=== PATIENT | female | born 1935 | race Caucasian/White ===

== ENCOUNTER → 2018-11-27 | Day surgery (SDC) | payer MEDICARE ==
[2018-11-14 13:01] LABS: BASOPHILS # (AUTO) 0.1 (0.0-0.1); BASOPHILS % 1.2 % (0.0-1.0); EOSINOPHILS # (AUTO) 0.5 (0.0-0.4); EOSINOPHILS % 10.7 % (0.0-6.0); HEMATOCRIT 38.2 % (34.2-44.1); HEMOGLOBIN 12.9 g/dL (12.0-16.0); LYMPHOCYTES # (AUTO) 1.9 (1.0-3.2); LYMPHOCYTES % 36.6 % (18.0-39.1); MEAN CORPUSCULAR HEMOGLOBIN 33.6 pg (28-32); MEAN CORPUSCULAR HGB CONC 33.8 g/dL (31-35); MEAN CORPUSCULAR VOLUME 99.5 fL (81-99); MONOCYTES # (AUTO) 0.6 (0.2-0.8); MONOCYTES % 12.5 % (4.4-11.3); NEUTROPHILS % 38.8 % (38.7-80.0); PLATELET COUNT 219 x10e3/uL (140-360); RED BLOOD COUNT 3.84 x10e6/uL (3.6-5.1); RED CELL DISTRIBUTION WIDTH 12.9 % (11.7-14.4)
[~2018-11-27] MED LIST: CLARITHROMYCIN; ELMIRON; LEVOTHYROXINE50 MCG PO; LIDOCAINE HCL 2% LOCAL INJ 5 ML SDV VIAL INJ ONE; LIPITOR; NITROFURANTOIN; PROPOFOL IV EMULSION 10 MG/ML 50 ML VIAL ONE; PROZAC PO
--- OUTSIDE RECORDS SUMMARY | 2018-11-27 06:44 | XMS REPORT ---
Author Author [facility] Address Unknown Phone Unavailable Care Team Providers Care Photo Technologist Name Role Phone Unavailable Unavailable Payers Payer Name Policy Type Policy Number Effective Date Expiration Date Problems This patient has no known problems. Allergies, Adverse Reactions, Alerts Allergy Name Allergy Type Status Severity Reaction(s) Onset Date Inactive Date Treating Clinician Comments Penicillins DA Active [place] 2009-09-07 00:00:00 Medications This patient has no known medications. Results Test Description Test Time Test Comments Text Results Atomic Results Result Comments - XR CHEST 1 V 2018-07-22 18:39:00 Name: ANN FINNEGAN [facility] : 1935 Age/S:83 /F [address] [facility] Unit#:[id number] Loc: [place] [address] Phys: Alonso Sen MD Dis Date: PHONE #: [phone] Status: REG ER FAX #: [phone] Exam Date: 07/22/2018 Reason: CHEST PAIN EXAMS: CPT CODE: [id number] XR CHEST 1 V 20159 HISTORY: Chest pain. COMPARISON: September 07, 2009. No acute infiltrates, effusion or congestion is noted. Mild cardiomegaly. IMPRESSION: No acute infiltrates, effusion or congestion. at 1838 Reported and signed by: Shmuel Plascencia M.D. CC: Alonso Sen MD Technologist: Jessica Fierro Trnscrpt Data: 07/22/2018 ([id number]) [id number] Orig Print D/T: S: 07/22/2018 ([id number]) PAGE 1 Signed Report URINALYSIS COMPLETE 2018-07-22 18:35:00 UA COLOR (test code=COLU) LIGHT YELLOW YELLOW UA APPEARANCE (test code=APPU) CLEAR CLEAR UA GLUCOSE DIPSTICK (test code=DGLUU) norm mg/dL NEGATIVE UA BILIRUBIN DIPSTICK (test code=BILU) NEGATIVE mg/dL NEGATIVE UA KETONE DIPSTICK (test code=KETU) neg mg/dL NEGATIVE UA SPECIFIC GRAVITY (test code=SGU) 1.010 1.001-1.035 UA BLOOD DIPSTICK (test code=YULIA) 25 (1+) Maximilian/uL NEGATIVE UA PH DIPSTICK (test code=DAY) 6.5 5.0-8.0 UA PROTEIN DIPSTICK (test code=PROU) 15 (TRACE) mg/dL Neg-15 UA UROBILINIOGEN DIPSTICK (test code=URO) 1 mg/dL 0.0-0.2 UA NITRITE DIPSTICK (test code=JACKELIN) NEGATIVE NEGATIVE UA LEUKOCYTE ESTERASE DIPSTICK (test code=LEUU) 25 Ariella/uL (Trace) uL NEGATIVE UA WBC (test code=WBCU) 0-5 per HPF 0-5 UA RBC (test code=RBCU) 0-2 per HPF 0-5 UA EPITHELIAL CELLS (test code=EPIU) Few (2-5/hpf) per HPF Few UA BACTERIA (test code=BACU) TRACE per HPF NONE UA MUCUS (test code=MUCU) FEW per LPF NONE-FEW Urine Source? Clean CatchURINALYSIS [id number] 18:29:00* Test Item Value Reference Range Comments UA COLOR (test code=COLU) LIGHT YELLOW YELLOW UA APPEARANCE (test code=APPU) CLEAR CLEAR UA GLUCOSE DIPSTICK (test code=DGLUU) norm mg/dL NEGATIVE UA BILIRUBIN DIPSTICK (test code=BILU) NEGATIVE mg/dL NEGATIVE UA KETONE DIPSTICK (test code=KETU) neg mg/dL NEGATIVE UA SPECIFIC GRAVITY (test code=SGU) 1.010 1.001-1.035 UA BLOOD DIPSTICK (test code=YULIA) 25 (1+) Maximilian/uL NEGATIVE UA PH DIPSTICK (test code=DAY) 6.5 5.0-8.0 UA PROTEIN DIPSTICK (test code=PROU) 15 (TRACE) mg/dL Neg-15 UA UROBILINIOGEN DIPSTICK (test code=URO) 1 mg/dL 0.0-0.2 UA NITRITE DIPSTICK (test code=JACKELIN) NEGATIVE NEGATIVE UA LEUKOCYTE ESTERASE DIPSTICK (test code=LEUU) 25 Ariella/uL (Trace) uL NEGATIVE UA WBC (test code=WBCU) per HPF 0-5 UA RBC (test code=RBCU) per HPF 0-5 UA EPITHELIAL CELLS (test code=EPIU) per HPF Few UA BACTERIA (test code=BACU) per HPF NONE Urine Source? Clean CatchBASIC METABOLIC [id number] 18:25:00* Test Item Value Reference Range Comments SODIUM (test code=NA) 137 mmol/L 136-145 POTASSIUM (test code=K) 4.3 mmol/L 3.5-5.1 CHLORIDE (test code=CL) 102 mmol/L 101-109 CARBON DIOXIDE (test code=CO2) 28.4 mmol/L 21-32 ANION GAP (test code=GAP) 11 mmol/L 10-20 GLUCOSE (test code=GLU) 108 mg/dL 74-106 BLOOD UREA NITROGEN (test code=BUN) 18 mg/dL 3-21 GLOMERULAR FILTRATION RATE (test code=GFR) 56 mL/min >=60 Estimated GFR by using Modified MDRD formula.Chronic kidney disease is defined as either kidney damageor GFR <60 mL/min/1.73 m2 for >3 months. CREATININE (test code=CREAT) 0.95 mg/dL 0.55-1.3 BUN/CREATININE RATIO (test code=BUN/CREA) 18.9 10-20 CALCIUM (test code=CA) 8.6 mg/dL 8.4-10.2 [id number] 18:25:00* Test Item Value Reference Range Comments TROPONIN-I (test code=TROPI) <0.015 ng/mL 0.00-0.056 BASIC METABOLIC [id number] 18:16:00* Test Item Value Reference Range Comments SODIUM (test code=NA) 137 mmol/L 136-145 POTASSIUM (test code=K) 4.3 mmol/L 3.5-5.1 CHLORIDE (test code=CL) 102 mmol/L 101-109 CARBON DIOXIDE (test code=CO2) 28.4 mmol/L 21-32 ANION GAP (test code=GAP) 11 mmol/L 10-20 GLUCOSE (test code=GLU) 108 mg/dL 74-106 BLOOD UREA NITROGEN (test code=BUN) mg/dL 3-21 GLOMERULAR FILTRATION RATE (test code=GFR) 56 mL/min >=60 Estimated GFR by using Modified MDRD formula.Chronic kidney disease is defined as either kidney damageor GFR <60 mL/min/1.73 m2 for >3 months. CREATININE (test code=CREAT) 0.95 mg/dL 0.55-1.3 BUN/CREATININE RATIO (test code=BUN/CREA) 10-20 CALCIUM (test code=CA) 8.6 mg/dL 8.4-10.2 [id number] 18:16:00* Test Item Value Reference Range Comments TROPONIN-I (test code=TROPI) <0.015 ng/mL 0.00-0.056 B-TYPE NATRIURETIC [id number] 18:10:00* Test Item Value Reference Range Comments B-TYPE NATRIURETIC PEPTIDE (test code=BNP) 55.4 pg/mL 0-100 CBC W/O [id number] 17:51:00* Test Item Value Reference Range Comments WHITE BLOOD CELL (test code=WBC) 9.2 K/mm3 4.5-12.5 RED BLOOD CELL (test code=RBC) 3.79 mill/mm3 3.7-5.2 HEMOGLOBIN (test code=HGB) 12.6 gram/dL 11.5-15.5 HEMATOCRIT (test code=HCT) 37.6 % 36.0-46.0 MEAN CELL VOLUME (test code=MCV) 99.2 fL 80-98 MEAN CELL HGB (test code=MCH) 33.2 picogram 27.0-33.0 MEAN CELL HGB CONCETRATION (test code=MCHC) 33.5 gram/dL 33.0-36.0 RED CELL DISTRIBUTION WIDTH (test code=RDW) 13.0 % 11.6-16.2 RED CELL DISTRIBUTION WIDTH SD (test code=RDW-SD) 48.3 fL 37.0-51.0 PLATELET COUNT (test code=PLT) 208 K/mm3 150-450 MEAN PLATELET VOLUME (test code=MPV) 11.4 fL 6.7-11.0
--- OUTSIDE RECORDS SUMMARY | 2018-11-27 06:44 | XMS REPORT | Encounter Summary ---
Author Organization Unknown Address [address] [place] [address] Phone [phone] Care Team Providers Care Communications Technician Name Role Phone Donna Ashraf MD 3 [phone] Reason for Visit Medical Complaint Instructions 1. Acute urinary tract infection urinalysis, dipstick Macrobid 100 mg capsule culture, urine Discussion Note Pt is in NAD; Verbalizes understanding of all instructions with no questions at this time. Patient educational handouts: No information available. Plan of Care Patient Instructions Recommend proper hydration and frequent urination. Avoid douching, Recommend urinating after sexual intercourse. Recommend wipe front to back after urinating. Avoid using tubs. Take medications as prescribed. Follow up with your PCP within 2-3 days if symptoms worsen as discussed and within a week for re-assessment of protein and blood in urine. Reminders Provider Appointments None recorded. Lab Urinalysis, Dipstick 12/09/2017 [facility] Culture, Urine 12/09/2017 [facility] Referral None recorded. Procedures None recorded. Surgeries None recorded. Imaging None recorded. Medications Name Start Date atorvastatin 10 mg tablet TK 1 T PO QD cyanocobalamin (vit B-12) 1,000 mcg/mL injection solution INJECT 1ML IM Q MONTH fluoxetine 10 mg capsule TK 1 C PO QD Fluzone High-Dose [id number] (PF) 180 mcg/0.5 mL intramuscular syringe ADM 0.5ML IM UTD levothyroxine 25 mcg tablet TK 1 T PO QD Macrobid 100 mg capsule Take 1 capsule every 12 hours by oral route as directed for 5 days. Medications Administered None recorded. Vitals Height Weight BMI Blood Pressure 5 ft 3 in 125 lbs 22.1 kg/m2 110/72 mm[Hg] Lab Results Date Name Specimen Result Interpretation Description Value Range Status Address 12/09/2017 Urinalysis, Dipstick Color : Felisa [facility]: [address] [place] [address] Clarity : Clear [facility]: [address] [place] [address] Leukocytes : Small [facility]: [address] [facility] Nitrites : Negative [facility]: [facility] Urobilinogen : Normal [facility]: [facility] Protein : Trace [facility]: [facility] Ph : 6.5 [facility]: [facility] Blood : Small [facility]: [facility] Specific [place] : 1.025 [facility]: [facility] Ketones : Negative [facility]: [facility] Bilirubin : Negative [facility]: [facility] Glucose Negative [facility]: [facility] Allergies Code Code System Name Reaction Severity Status Onset Penicillins Active Problems Name Status Onset Date Source Hypothyroidism Active 12/09/2017 Hyperlipidemia Active 12/09/2017 Anxiety Active 12/09/2017 Depressive Disorder Active 12/09/2017 Acute Urinary Tract Infection Active 12/09/2017 Procedures Date Name Performed by Procedure on Gallbladder Information not available Tubal Ligation Information not available Vaccine List Vaccine Type influenza, unspecified formulation 11/16/2017 Social History Smoking Status Never Smoker Past Encounters 12/09/2017 Acute Urinary Tract Infection Carlie Cristina, JUNIOR GRAPHIC DESIGNER-C: [address] [place] [address], Ph. History of Present Illness [id number] Reported By: Patient HPI: Location: radiation to bladder, urethra. Quality: pain, burning. Severity: worsening, moderate. Duration: constant. Onset/Timing: worse, gradual. Context: not sexually active, no known exposure to STD, no prior history of STDs, history of urine cultures/antibiotic treatment. Modifying factors nothing makes it worse. Associated Symptoms: no fever/chills, no jaundice, no blood in the urine, no vaginal discharge, no blisters on genitals, no rash on genitals, no muscle aches, no headache, flank pain, pain during urination; fever Review of Systems:ROS as noted in the HPI Review of Systems Basic Reported By: Patient Physical Exam Adult Basic, Adult Female Complete Reported By: Patient Constitutional: General Appearance: healthy-appearing, well-nourished, well-developed. Level of Distress: NAD. Ambulation: ambulating normally Psychiatric: Mental Status: active and alert. Orientation: to time, to place, to person Eyes: Lids and Conjunctivae: non-injected, no pallor; no periorbital edema Neck: Neck: supple. Lymph Nodes: no cervical LAD Lungs: Respiratory effort: no dyspnea, no tachypnea, no use of accessory muscles, no intercostal retractions. Auscultation: breath sounds normal Cardiovascular: Heart Auscultation: RRR, no murmurs Musculoskeletal:: Extremities: no edema Neurologic: Gait and Station: normal gait Abdomen: Bowel Sounds: normal. Inspection and Palpation: soft, non-distended, no tenderness, no guarding, no rebound tenderness, no masses, no CVA tenderness. Liver: non-tender, no hepatomegaly. Spleen: non-tender, no splenomegaly. Hernia: none palpable
--- OUTSIDE RECORDS SUMMARY | 2018-11-27 06:44 | XMS REPORT | Continuity of Care Document ---
Author Author [employer] Address Unknown Phone Unavailable Care Team Providers Care Laser Engineer Name Role Phone Keepy Unavailable Unavailable Problems Problem Status Onset Date Classification Date Reported Comments Source Hypothyroidism 12/09/2017 Problem 12/09/2017 [facility] Hyperlipidemia 12/09/2017 Problem 12/09/2017 [facility] Anxiety 12/09/2017 Problem 12/09/2017 [facility] Depressive disorder 12/09/2017 Problem 12/09/2017 [facility] Acute urinary tract infection 12/09/2017 Problem 12/09/2017 [facility] Medications Medication Details Route Status Patient Instructions Ordering Provider Order Date Source atorvastatin 10 MG Oral Tablet atorvastatin 10 mg tablet TK 1 T PO QD Active [facility] Vitamin B 12 1 MG/ML Injectable Solution cyanocobalamin (vit B-12) 1,000 mcg/mL injection solution INJECT 1ML IM Q MONTH Active [facility] Fluoxetine 10 MG Oral Capsule fluoxetine 10 mg capsule TK 1 C PO QD Active [facility] Fluzone High-Dose [id number] (PF) 180 mcg/0.5 mL intramuscular syringe Fluzone High-Dose 2614-1498 (PF) 180 mcg/0.5 mL intramuscular syringe ADM 0.5ML IM UTD Active [facility] Levothyroxine Sodium 0.025 MG Oral Tablet levothyroxine 25 mcg tablet TK 1 T PO QD Active [facility] NITROFURANTOIN, MACROCRYSTALS 25 MG / Nitrofurantoin, Monohydrate 75 MG Oral Capsule [Macrobid] Macrobid 100 mg capsule Take 1 capsule every 12 hours by oral route as directed for 5 days. Active [facility] Allergies, Adverse Reactions, Alerts Substance Category Reaction Severity Reaction type Status Date Reported Comments Source Penicillins Allergy to substance 12/09/2017 [facility] Immunizations Immunization Date Given Site Status Last Updated Comments Source influenza, unspecified formulation 11/16/2017 completed [facility] Results Order Name Results Value Reference Range Date Interpretation Comments Source Urinalysis macro (dipstick) panel - Urine COLOR : Felisa 12/09/2017 [facility] Urinalysis macro (dipstick) panel - Urine CLARITY : Clear 12/09/2017 [facility] Urinalysis macro (dipstick) panel - Urine LEUKOCYTES : Small 12/09/2017 [facility] Urinalysis macro (dipstick) panel - Urine NITRITES : Negative 12/09/2017 [facility] Urinalysis macro (dipstick) panel - Urine UROBILINOGEN : Normal 12/09/2017 [facility] Urinalysis macro (dipstick) panel - Urine PROTEIN : Trace 12/09/2017 [facility] Urinalysis macro (dipstick) panel - Urine pH : 6.5 12/09/2017 [facility] Urinalysis macro (dipstick) panel - Urine BLOOD : Small 12/09/2017 [facility] Urinalysis macro (dipstick) panel - Urine SPECIFIC GRAVITY : 1.025 12/09/2017 [facility] Urinalysis macro (dipstick) panel - Urine KETONES : Negative 12/09/2017 [facility] Urinalysis macro (dipstick) panel - Urine BILIRUBIN : Negative 12/09/2017 [facility] Urinalysis macro (dipstick) panel - Urine GLUCOSE Negative 12/09/2017 [facility] Pathology Reports No Data Provided for This Section Diagnostic Reports No Data Provided for This Section Consultation Notes No Data Provided for This Section Discharge Summaries No Data Provided for This Section History and Physicals No Data Provided for This Section Vital Signs Vital Sign Value Date Comments Source Diastolic (mm Hg) 72 12/09/2017 [facility] Height 63 12/09/2017 [facility] Systolic (mm Hg) 110 12/09/2017 [facility] Weight 125 12/09/2017 [facility] Encounters Location Location Details Encounter Type Encounter Number Reason For Visit Attending Provider ADM Date DC Date Status Source [place] - [facility] - [id number] Cristina, COMPANION CAREGIVER-C: [address] [place] [address], Ph. [id number] Carlie Cristina 12/09/2017 [facility] Procedures Procedure Code Date Perfomer Comments Source Procedure on Gallbladder [facility] Tubal Ligation [facility] Assessment and Plan No Data Provided for This Section Plan of Care No Data Provided for This Section Social History Social History Date Source Smoking Status Never Smoker 12/09/2017 [facility] Family History No Data Provided for This Section Advance Directives No Data Provided for This Section Functional Status No Data Provided for This Section
[2018-11-27 10:55] VITALS: BP 130/76
--- NOTE | 2018-11-27 17:22 | Operative Report ---
DATE OF PROCEDURE: 11/27/2018 SURGEON: Mikey Eagle MD PROCEDURE: EGD with biopsies. INDICATIONS FOR EGD: Upper abdominal pain, bloating, heartburn. MEDICATIONS: The patient was done under MAC, please see anesthesiologist's note. PROCEDURE IN DETAIL: With the patient in left lateral decubitus position, a flexible fiberoptic Olympus gastroscope was introduced into the esophagus under direct visualization without any difficulty. There was some patchy erythema noted in distal esophagus. Minute tongues of velvety red mucosa were noted to extend proximally from the GE junction and biopsies were obtained to rule out Blake. The scope was then advanced with ease into the stomach traversing a small hiatal hernia. The mucosa overlying the antrum and the body revealed some patchy erythema and low-grade to moderate edema, and biopsies were obtained and sent to stain for H. pylori. Pylorus was of normal contour and shape, it was intubated with ease and the scope was advanced all the way to the second portion of the duodenum. Biopsies were obtained from the second portion and duodenal bulb to rule out sprue. The scope was then withdrawn back into the stomach and retroflexed, and mucosa overlying the fundus appeared to be within normal limits. The previously described hiatal hernia was also noted in the retroflexed position. The scope was then straightened out, it was subsequently withdrawn, and the patient tolerated the procedure well. IMPRESSION: 1. Distal esophagitis, mild. 2. Rule out Blake esophagus. 3. Small hiatal hernia. 4. Gastritis, biopsied, biopsies sent to stain for Helicobacter pylori. 5. Rule out sprue. PLAN: Follow up histology. Initiate Protonix 40 mg 1 p.o. q.a.m. before meals. Mikey Eagle MD [facility] [place] /[id number] cc: Donna Ashraf MD
== END | disposition home or self-care (01) ==
LOC: OR 06:43
PROVIDERS: ATTEND Internal Medicine Gastroenterology
DX: K21.0 Gastro-esophageal reflux disease with esophagitis (principal); R14.0 Abdominal distension (gaseous); J45.909 Unspecified asthma, uncomplicated; I48.91 Unspecified atrial fibrillation; E03.9 Hypothyroidism, unspecified; Z88.0 Allergy status to penicillin; K44.9 Diaphragmatic hernia without obstruction or gangrene; K29.70 Gastritis, unspecified, without bleeding; K29.50 Unspecified chronic gastritis without bleeding; Z01.810 Encounter for preprocedural cardiovascular examination; Z01.812 Encounter for preprocedural laboratory examination
CPT/HCPCS: 36415; 43239; 85025; 88305; 88312; 93005; J2001; J2704

== ENCOUNTER → 2019-11-14 | Outpatient (CLI) | payer MEDICARE ==
[~2019-11-14] MED LIST changes: -LIDOCAINE HCL 2% LOCAL INJ 5 ML SDV VIAL INJ ONE; -PROPOFOL IV EMULSION 10 MG/ML 50 ML VIAL ONE
--- NOTE | 2019-11-14 11:22 | Diagnostic Imaging Report ---
EXAM: Complete Abdominal Ultrasound INDICATION: Abdominal pain. Prior cholecystectomy ^UPPER ABDOMINAL PAIN COMPARISON: None. TECHNIQUE: Transverse and longitudinal images of the upper abdomen were obtained. FINDINGS: Liver: Size: 11.6 cm in the right midclavicular line, normal Appearance: Normal echogenicity, smooth contour Mass: No focal masses Spleen: Size: 9.5 cm in length, normal Echogenicity: Normal Mass: No focal masses Gallbladder: Prior cholecystectomy Sonographic León's Sign: Negative Bile Ducts: Intrahepatic Ducts: No dilatation Extrahepatic Ducts: Common bile duct measures 0.5 cm, no dilatation Pancreas: Visualized portions of the pancreatic head, neck and proximal body are normal. Kidneys: Length: Right 8.8 cm Left 9.0 cm Echogenicity: Normal Collecting System: No hydronephrosis Stone: None Cyst/Mass: None Vessels: Aorta: Mild scattered calcification Inferior Vena Cava: Visualized portions are normal Main Portal Vein: 0.7 cm, normal size with hepatopetal flow. Free Fluid: No ascites or pleural effusion IMPRESSION: Prior cholecystectomy. Otherwise, unremarkable abdominal ultrasound. Signed by: Dr. Octaviano Easley M.D. on 11/14/2019 11:18 AM
== END ==
LOC: US 10:04
PROVIDERS: ATTEND Internal Medicine Gastroenterology
DX: R10.10 Upper abdominal pain, unspecified (principal)
CPT/HCPCS: 76700

== ENCOUNTER 2020-01-02 11:06 | Emergency (ER) | payer MEDICARE ==
[~2020-01-02] VITALS: Ht 157.5 cm; Wt 58.2 kg
[2020-01-02] MEDS ORDERED: SODIUM CHLORIDE FLUSH 10 ML SYR INJ PRN (11:30)
[2020-01-02] MEDS ORDERED: CIPROFLOXACIN 400 MG/D5W 200ML 200 ML IV ONE ×2 (11:30→11:49)
[2020-01-02] MEDS ORDERED: CRESTOR10 MG (11:31)
[2020-01-02] MEDS ORDERED: OMEPRAZOLE40 MG (11:31)
[2020-01-02] MEDS ORDERED: IOPAMIDOL 370 MG/ML 200 ML INFUS..BTL INJ ONE (11:33)
[2020-01-02] MEDS ORDERED: SODIUM CHLORIDE 0.9% 50ML 0 ML ONE (11:33)
[2020-01-02] MEDS ORDERED: KETOROLAC TROMETHAMINE 30 MG/ML VIAL IV ONE (11:56)
[2020-01-02] MEDS ORDERED: SODIUM CHLORIDE 0.9% 500ML 500 ML IV STA (11:56)
--- NOTE | 2020-01-02 12:03 | Emergency Department Note ---
History of Present Illnes History of Present Illness Chief Complaint: sent here to get ct scan of abd/pelvis to evaluate llq pain History of Present Illness This is a 84 year old female. was doing well prior to this. then 3 days ago llq pain Historian: Patient Arrival Mode: Car History limited by: condition of the patient (normal) Doctorate Of Chiropractic Required: No Onset (how long ago): day(s) (3) Location: llq Quality: sharp Radiation: Reports back Severity: moderate Onset quality: gradual Duration (how long): day(s) (3) Timing of current episode: constant Progression: worsening Chronicity: new Context: Denies recent illness, Denies recent surgery, Denies recent immobilization, Denies recent travel, Denies trauma/injury, Denies new medications, Denies hx of DVT/PE, Denies non-compliance w/ medications Relieving factors: rest Exacerbating factors: movement Associated symptoms: Reports denies other symptoms Treatments prior to arrival: none Past Medical/Family History Physician Review I have reviewed the patient's past medical and family history. Any updates have been documented here. Past Medical History Recent Fever: No Clinical Suspicion of Infectio: No New/Unexplained Change in Ment: No Past Medical History: Hypothyroidism, GERD, Hyperlipedemia Other Medical History: CURRENT UPPER RESPIRATORY INFECTION IRRITATED BLADDER SYNDROME Past Surgical History: Cholecysctectomy Other Surgery: BTL Social History Smoking Cessation: Never Smoker Counseling Performed: No Alcohol Use: None Any Illegal Drug Use: No Physically hurt or threatened: No Other Any Pre-Existing Lines (PICC,: No Review of Systems Review of Systems Constitutional: Reports no symptoms EENTM: Reports no symptoms Cardiovascular: Reports no symptoms Respiratory: Reports no symptoms Gastrointestinal: Reports as per HPI Genitourinary: Reports no symptoms Musculoskeletal: Reports no symptoms Integumentary: Reports no symptoms Neurological: Reports no symptoms Psychological: Reports no symptoms Endocrine: Reports no symptoms Hematological/Lymphatic: Reports no symptoms Review of other systems: All other systems negative Physical Exam Related Data Allergies: Coded Allergies: Penicillins (Verified Allergy, RASH, 09/18/10) Triage Vital Signs Vital Signs Date Time Temp Pulse Resp B/P (MAP) Pulse Ox O2 Delivery O2 Flow Rate FiO2 01/02/20 11:10 98.3 70 14 147/75 97 Room Air Vital signs reviewed: Yes Physical Exam CONSTITUTIONAL Constitutional: Present well-developed, Present well-nourished HENT HENT: Present normocephalic, Present atraumatic, Present mucosae dry, Present nose normal HENT L/R: Present left ext ear normal, Present right ext ear normal EYES Eyes: Reports PERRL, Reports conjunctivae normal NECK Neck: Present ROM normal, Present supple PULMONARY Pulmonary: Present effort normal, Present breath sounds normal CARDIOVASCULAR Cardiovascular: Present regular rhythm, Present heart sounds normal, Present capillary refill normal, Present normal rate GASTROINTESTINAL Abdominal: Present soft, Present bowel sounds normal, Present tender (llq), Present guarding; Absent rebound GENITOURINARY Genitourinary: Present exam deferred SKIN Skin: Present warm, Present dry MUSCULOSKELETAL Musculoskeletal: Present ROM normal NEUROLOGICAL Neurological: Present alert, Present oriented x 3, Present no gross motor or sensory deficits PSYCHOLOGICAL Psychological: Present mood/affect normal, Present judgement normal Results Laboratory Lab results reviewed: Yes Laboratory comments cbc/bmp/lfts all normal Imaging Imaging results reviewed: Yes Impressions [place] [address] Patient Name: ANN FINNEGAN MR #: [id number] : 1935 Age/Sex: 84/F Req #: [id number] Adm Physician: Ordered by: AMBAR LOPEZ Report #: [id number] Location: [facility] Room/Bed: Procedure: [id number] HOPD/CT ABD/PEL WO CONTRAST-HOPD Exam Date: 01/02/20 Exam Time: 1216 REPORT STATUS: Signed CT of the abdomen and pelvis, without contrast, 01/02/2020. History: Left lower quadrant abdominal pain. Comparison: None available. Technique: Multidetector CT scanning of the abdomen and pelvis was performed from the level of the lung bases to the inferior pubic rami without intravenous or oral contrast. Coronal and sagittal multiplanar reformations were obtained. RADIATION DOSE: Total DLP: 379 mGy*cm Dose modulation, iterative reconstruction, and/or weight based adjustment of the mA/kV was utilized to reduce the radiation dose to as low as reasonably achievable. Discussion: Examination is limited without contrast. Lung bases: Bilateral scarring is noted. Abdomen: Cholecystectomy clips are present. The liver, biliary tree, spleen, pancreas, adrenal glands, and kidneys are unremarkable. The abdominal aorta is within normal limits. Small hiatal hernia is noted. There is no bowel dilatation. Multiple diverticuli are present within the sigmoid colon with diffuse wall thickening and adjacent mesenteric fat stranding, but no evidence of focal fluid collection or free air. There is no evidence of adenopathy or free fluid. Pelvis: The bladder, uterus, and adnexa are unremarkable. There is no evidence of free fluid or adenopathy. Bones and soft tissues: Degenerative changes are present throughout the lumbar spine without evidence of lytic or sclerotic lesion. 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 IMPRESSION: 1. Sigmoid diverticulitis without evidence of perforation or abscess. The findings were discussed with Dr. Lopez at 1255 on 01/02/2020. 2. Status post cholecystectomy. Otherwise unremarkable noncontrast exam. Signed by: Michela Purcell on 01/02/2020 12:55 PM Dictated By: MICHELA PURCELL MD 1255 Transcribed By: ISAI on 01/02/20 1255 COPY TO: AMBAR LOPEZ~ Assessment & Plan Medical Decision Making MDM see below Reassessment Reassessment time: 13:00 Reassessment NO MORE PAIN Assessment & Plan Final Impression: (1) Diverticulitis (2) Dehydration Depart Disposition: HOME, SELF-CARE Last Vital Signs Date Time Temp Pulse Resp B/P (MAP) Pulse Ox O2 Delivery O2 Flow Rate FiO2 01/02/20 11:10 98.3 70 14 147/75 97 Room Air Home Meds Active Scripts Prednisone (PREDNISONE) 20 Mg Tab, 60 MG PO DAILY, #15 TAB take all 3 20 mg pills at once Prov:AMBAR LOPEZ 01/02/20 Metronidazole (METRONIDAZOLE) 500 Mg Tablet, 500 MG PO Q8H, #30 TAB take with juice and food Prov:AMBAR LOPEZ 01/02/20 Ciprofloxacin Hcl (CIPRO) 500 Mg Tablet, 500 MG PO Q12H, #20 TAB Prov:AMBAR LOPEZ 01/02/20 Ondansetron (ONDANSETRON ODT) 8 Mg Tab.rapdis, 4 TAB SL Q4HR PRN for NAUSEA AND VOMITING, #20 TAB Prov:AMBAR LOPEZ 01/02/20 Reported Medications Omeprazole (OMEPRAZOLE) 40 Mg Capsule.dr, DAILY 01/02/20 Rosuvastatin Calcium (CRESTOR) 10 Mg Tab, DAILY THERAPEUTICALLY SUBSTITUTED WITH SIMVASTATIN 40MG 01/02/20 Levothyroxine Sodium (LEVOTHYROXINE SODIUM) 50 Mcg Tablet, PO DAILY, #30 TAB 11/14/18 [Prozac] No Conflict Check, 10 MG PO DAILY 09/18/10 Discontinued Reported Medications [Lipitor] No Conflict Check, 10 MG HS 09/18/10 Medications in the ED Sodium Chloride 50 ml @ ud STK-MED ONCE .ROUTE ; Start 01/02/20 at 11:33; Stop 01/02/20 at 11:29; Status DC Iopamidol 74,000 mg STK-MED ONCE INJ ; Start 01/02/20 at 11:33; Stop 01/02/20 at 11:29; Status DC Sodium Chloride 10 ml PRN PRN INJ IV SITE FLUSH; Start 01/02/20 at 11:30; Stop 02/01/20 at 11:29 Ciprofloxacin Lactate 200 ml @ 200 mls/hr ONCE ONCE IV Last administered on 01/02/20at 11:50; Admin Dose 200 MLS/HR; Start 01/02/20 at 11:30; Stop 01/02/20 at 12:29 Ciprofloxacin Lactate 200 ml @ ud STK-MED ONCE IV ; Start 01/02/20 at 11:49; Stop 01/02/20 at 11:43; Status DC AMBAR LOPEZ Jan 02, 2020 12:03
[2020-01-02] MEDS ORDERED: SODIUM CHLORIDE 0.9% 500ML 500 ML ONE (12:28)
[2020-01-02] MEDS ORDERED: KETOROLAC TROMETHAMINE 30 MG/ML VIAL ONE (12:28)
--- NOTE | 2020-01-02 12:58 | Diagnostic Imaging Report ---
CT of the abdomen and pelvis, without contrast, 01/02/2020. History: Left lower quadrant abdominal pain. Comparison: None available. Technique: Multidetector CT scanning of the abdomen and pelvis was performed from the level of the lung bases to the inferior pubic rami without intravenous or oral contrast. Coronal and sagittal multiplanar reformations were obtained. RADIATION DOSE: Total DLP: 379 mGy*cm Dose modulation, iterative reconstruction, and/or weight based adjustment of the mA/kV was utilized to reduce the radiation dose to as low as reasonably achievable. Discussion: Examination is limited without contrast. Lung bases: Bilateral scarring is noted. Abdomen: Cholecystectomy clips are present. The liver, biliary tree, spleen, pancreas, adrenal glands, and kidneys are unremarkable. The abdominal aorta is within normal limits. Small hiatal hernia is noted. There is no bowel dilatation. Multiple diverticuli are present within the sigmoid colon with diffuse wall thickening and adjacent mesenteric fat stranding, but no evidence of focal fluid collection or free air. There is no evidence of adenopathy or free fluid. Pelvis: The bladder, uterus, and adnexa are unremarkable. There is no evidence of free fluid or adenopathy. Bones and soft tissues: Degenerative changes are present throughout the lumbar spine without evidence of lytic or sclerotic lesion. 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 IMPRESSION: 1. Sigmoid diverticulitis without evidence of perforation or abscess. The findings were discussed with Dr. Richter at 1255 on 01/02/2020. 2. Status post cholecystectomy. Otherwise unremarkable noncontrast exam. Signed by: Oli Purcell on 01/02/2020 12:55 PM
[2020-01-02] MEDS ORDERED: METRONIDAZOLE 500MG/NS 100ML 100 ML IV ONE ×2 (13:25→13:30)
[2020-01-02] MEDS ORDERED: CIPRO500 MG PO (13:28)
[2020-01-02] MEDS ORDERED: ONDANSETRON ODT8 MG SL (13:28)
[2020-01-02] MEDS ORDERED: METRONIDAZOLE500 MG PO (13:28)
[2020-01-02] MEDS ORDERED: PREDNISONE20 MG PO (13:28)
[2020-01-02] MEDS ORDERED: METHYLPREDNISOLONE SOD SUCC 125 MG/2ML VIAL IV ONE (13:30)
[2020-01-02] MEDS ORDERED: METHYLPREDNISOLONE SOD SUCC 125 MG/2ML VIAL ONE (13:56)
[2020-01-02 14:27] VITALS: BP 147/57
--- OUTSIDE RECORDS SUMMARY | 2020-01-08 18:00 | XMS REPORT | Continuity of Care Document ---
Author Author [facility] t Organization [facility] Address [address] [place] [address] Phone Unavailable Care Team Providers Care Patient Support Representative Name Role Phone Conor LOPEZ Attphys Unavailable ÁLVAREZAIDE Arnold Attphys Unavailable Payers Payer Name Policy Type Policy Number Effective Date Expiration Date S ource Problems This patient has no known problems. Allergies, Adverse Reactions, Alerts Allergy Name Allergy Type Status Severity Reaction(s) Onset Date Inacti ve Date Treating Clinician Comments Source Penicillins DA Active ND 2009-09-07 00:00:00 [facility] Medications This patient has no known medications. Procedures This patient has no known procedures. Results Test Description Test Time Test Comments Results Result Comments Source CT ABD/PEL WO CONTRAST-HOPD 2020-01-02 12:46:00 [facility] 1935 Sex: F [facility] [address] [place] [address] Patient Name: ANN FINNEGAN MR #: [id number] : 1935 [facility] 84[id number] Req #: [id number] Adm Physician: Ordered by: AMBAR LOPEZ Report #: [id number] Location: [facility] Room/Bed: Procedure: [id number] HOPD/CT ABD/PEL WO CONTRAST-HOPD Exam Date: 01/02/20 Exam Time: 1216 REPORT STATUS: Signed CT of the abdomen and pelvis, without contrast, 01/02/2020. History: Left lower quadrant abdominal pain. Comparison: None available. Technique: Multidetector CT scanning of the abdomen and pelvis was performed from the level of the lung bases to the inferior pubic rami without intravenous or oral contrast. Coronal and sagittal multiplanar reformations were obtained. RADIATION DOSE: Total DLP: 379 mGy*cm Dose modulation, iterative reconstruction, and/or weight based adjustment of the mA/kV was utilized to reduce the radiation dose to as low as reasonably achievable. Discussion: Examination is limited without contrast. Lung bases: Bilateral scarring is noted. Abdomen: Cholecystectomy clips are present. The liver, biliary tree, spleen, pancreas, adrenal glands, and kidneys are unremarkable. The abdominal aorta is within normal limits. Small hiatal hernia is noted. There is no bowel dilatation. Multiple diverticuli are present within the sigmoid colon with diffuse wall thickening and adjacent mesenteric fat stranding, but no evidence of focal fluid collection or free air. There is no evidence of adenopathy or free fluid. Pelvis: The bladder, uterus, and adnexa are unremarkable. There is no evidence of free fluid or adenopathy. Bones and soft tissues: Degenerative changes are present throughout the lumbar spine without evidence of lytic or sclerotic lesion. 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 IMPRESSION: 1. Sigmoid diverticulitis without evidence of perforation or abscess. The findings were discussed with Dr. Lopez at 1255 on 01/02/2020. 2. Status post cholecystectomy. Otherwise unremarkable noncontrast exam. Signed by: Oli Purcell on 01/02/2020 12:55 PM Dictated By: OLI PURCELL MD 54 Transcribed By: ISAI on 01/02/201254 COPY TO: AMBAR LOPEZ US ABDOMEN COMPLETE 2019-11-14 11:17:00 [place] [address] Patient Name: ANN FINNEGAN MR #: [id number] : 1935 Age/Sex: 84/F Req #: [id number] Adm Physician: Ordered by: AIDE ÁLVAREZ MD Report #: [id number] Location: US Room/Bed: Procedure: [id number] US/US ABDOMEN COMPLETE Exam Date: 11/14/19 Exam Time: 1054 REPORT STATUS: Signed EXAM: Complete Abdominal Ultrasound INDICATION: Abdominal pain. Prior cholecystectomy UPPER ABDOMINAL PAIN COMPARISON: None. TECHNIQUE: Transverse and longitudinal images of the upper abdomen were obtained. FINDINGS: Liver: Size: 11.6 cm in the right midclavicular line, normal Appearance: Normal echogenicity, smooth contour Mass: No focal masses Spleen: Size: 9.5 cm in length, normal Echogenicity: Normal Mass: No focal masses Gallbladder: Prior cholecystectomy Sonographic León's Sign: Negative Bile Ducts: Intrahepatic Ducts: No dilatation Extrahepatic Ducts: Common bile duct measures 0.5 cm, no dilatation Pancreas: Visualized portions of the pancreatic head, neck and proximal body are normal. Kidneys: Length: Right 8.8 cm Left 9.0 cm Echogenicity: Normal Collecting System: No hydronephrosis Stone: None Cyst/Mass: None Vessels: Aorta: Mild scattered calcification Inferior Vena Cava: Visualized portions are normal Main Portal Vein: 0.7 cm, normal size with hepatopetal flow. Free Fluid: No ascites or pleural effusion IMPRESSION: Prior cholecystectomy. Otherwise, unremarkable abdominal ultrasound. Signed by: Dr. Raquel Nieto M.D. on 11/14/2019 11:18 AM Dictated By: RAQUEL NIETO MD, MD 17 Transcribed By: ISAI on 11/14/191117 COPY TO: AIDE ÁLVAREZ MD - XR CHEST 1 V 2018-07-22 18:39:00 Name: ANN BRUNSON [facility] : 1935 Age/S:83 /F [address] [facility] Unit#:[id number] [place]: [place] [address] Phys: Alonso Sen MD Dis Date: PHONE #: [phone] Status: REG ER FAX #: [phone] Exam Date: 07/22/2018 Reason: CHEST PAIN EXAMS: CPT CODE: [id number] XR CHEST 1 V 05476 HISTORY: Chest pain. COMPARISON: September 07, 2009. No acute infiltrates, effusion or congestion is noted. Mild cardiomegaly. IMPRESSION: No acute infiltrates, effusion or congestion. at 1839 Reported and signed by: Shmuel Plascencia M.D. CC: Alonso Sen MD Technologist: Jessica Fierro Trnscrpt Data: 07/22/2018 (183) [email or web address] Orig Print D/T: S: 07/22/2018 (184) PAGE 1 Signed Report URINALYSIS COMPLETE 2018-07-22 18:35:00 Test Item UA COLOR (test code = COLU) LIGHT YELLOW YELLOW UA APPEARANCE (test code = APPU) CLEAR CLEAR UA GLUCOSE DIPSTICK (test code = DGLUU) norm mg/dL NEGATIVE UA BILIRUBIN DIPSTICK (test code = BILU) NEGATIVE mg/dL NEGATIVE UA KETONE DIPSTICK (test code = KETU) neg mg/dL NEGATIVE UA SPECIFIC GRAVITY (test code = SGU) 1.010 1.001-1.035 UA BLOOD DIPSTICK (test code = YULIA) 25 (1+) Maximilian/uL NEGATIVE A UA PH DIPSTICK (test code = DAY) 6.5 5.0-8.0 UA PROTEIN DIPSTICK (test code = PROU) 15 (TRACE) mg/dL Neg-15 A UA UROBILINIOGEN DIPSTICK (test code = URO) 1 mg/dL 0.0-0.2 A UA NITRITE DIPSTICK (test code = JACKELIN) NEGATIVE NEGATIVE UA LEUKOCYTE ESTERASE DIPSTICK (test code = LEUU) 25 Ariella/uL (Tra ce) uL NEGATIVE A UA WBC (test code = WBCU) 0-5 per HPF 0-5 UA RBC (test code = RBCU) 0-2 per HPF 0-5 UA EPITHELIAL CELLS (test code = EPIU) Few (2-5/hpf) per HPF Few UA BACTERIA (test code = BACU) TRACE per HPF NONE UA MUCUS (test code = MUCU) FEW per LPF NONE-FEW Urine Source? Clean CatchURINALYSIS [id number] 18:29:00* Test Item Value Reference Range Interpretation Comments UA COLOR (test code = COLU) LIGHT YELLOW YELLOW UA APPEARANCE (test code = APPU) CLEAR CLEAR UA GLUCOSE DIPSTICK (test code = DGLUU) norm mg/dL NEGATIVE UA BILIRUBIN DIPSTICK (test code = BILU) NEGATIVE mg/dL NEGATIVE UA KETONE DIPSTICK (test code = KETU) neg mg/dL NEGATIVE UA SPECIFIC GRAVITY (test code = SGU) 1.010 1.001-1.035 UA BLOOD DIPSTICK (test code = YULIA) 25 (1+) Maximilian/uL NEGATIVE A UA PH DIPSTICK (test code = DAY) 6.5 5.0-8.0 UA PROTEIN DIPSTICK (test code = PROU) 15 (TRACE) mg/dL Neg-15 A UA UROBILINIOGEN DIPSTICK (test code = URO) 1 mg/dL 0.0-0.2 A UA NITRITE DIPSTICK (test code = JACKELIN) NEGATIVE NEGATIVE UA LEUKOCYTE ESTERASE DIPSTICK (test code = LEUU) 25 Ariella/uL (Tra ce) uL NEGATIVE A UA WBC (test code = WBCU) per HPF 0-5 UA RBC (test code = RBCU) per HPF 0-5 UA EPITHELIAL CELLS (test code = EPIU) per HPF Few UA BACTERIA (test code = BACU) per HPF NONE Urine Source? Clean CatchBASIC METABOLIC [id number] 18:25:00* Test Item Value Reference Range Interpretation Comments SODIUM (test code = NA) 137 mmol/L 136-145 N POTASSIUM (test code = K) 4.3 mmol/L 3.5-5.1 N CHLORIDE (test code = CL) 102 mmol/L 101-109 N CARBON DIOXIDE (test code = CO2) 28.4 mmol/L 21-32 N ANION GAP (test code = GAP) 11 mmol/L 10-20 N GLUCOSE (test code = GLU) 108 mg/dL 74-106 H BLOOD UREA NITROGEN (test code = BUN) 18 mg/dL 3-21 N GLOMERULAR FILTRATION RATE (test code = GFR) 56 mL/min >=60 Estimated GFR by using Modified MDRD formula.Chronic kidney disease is defined as either kidney damageor GFR <60 mL/min/1.73 m2 for >3 months. CREATININE (test code = CREAT) 0.95 mg/dL 0.55-1.3 N BUN/CREATININE RATIO (test code = BUN/CREA) 18.9 10-20 N CALCIUM (test code = CA) 8.6 mg/dL 8.4-10.2 N [id number] 18:25:00* Test Item Value Reference Range Interpretation Comments TROPONIN-I (test code = TROPI) <0.015 ng/mL 0.00-0.056 N BASIC METABOLIC [id number] 18:16:00* Test Item Value Reference Range Interpretation Comments SODIUM (test code = NA) 137 mmol/L 136-145 N POTASSIUM (test code = K) 4.3 mmol/L 3.5-5.1 N CHLORIDE (test code = CL) 102 mmol/L 101-109 N CARBON DIOXIDE (test code = CO2) 28.4 mmol/L 21-32 N ANION GAP (test code = GAP) 11 mmol/L 10-20 N GLUCOSE (test code = GLU) 108 mg/dL 74-106 H BLOOD UREA NITROGEN (test code = BUN) mg/dL 3-21 GLOMERULAR FILTRATION RATE (test code = GFR) 56 mL/min >=60 Estimated GFR by using Modified MDRD formula.Chronic kidney disease is defined as either kidney damageor GFR <60 mL/min/1.73 m2 for >3 months. CREATININE (test code = CREAT) 0.95 mg/dL 0.55-1.3 N BUN/CREATININE RATIO (test code = BUN/CREA) 10-20 CALCIUM (test code = CA) 8.6 mg/dL 8.4-10.2 N [id number] 18:16:00* Test Item Value Reference Range Interpretation Comments TROPONIN-I (test code = TROPI) <0.015 ng/mL 0.00-0.056 N B-TYPE NATRIURETIC [id number] 18:10:00* Test Item Value Reference Range Interpretation Comments B-TYPE NATRIURETIC PEPTIDE (test code = BNP) 55.4 pg/mL 0-100 N CBC W/O [id number] 17:51:00* Test Item Value Reference Range Interpretation Comments WHITE BLOOD CELL (test code = WBC) 9.2 K/mm3 4.5-12.5 N RED BLOOD CELL (test code = RBC) 3.79 mill/mm3 3.7-5.2 N HEMOGLOBIN (test code = HGB) 12.6 gram/dL 11.5-15.5 N HEMATOCRIT (test code = HCT) 37.6 % 36.0-46.0 N MEAN CELL VOLUME (test code = MCV) 99.2 fL 80-98 H MEAN CELL HGB (test code = MCH) 33.2 picogram 27.0-33.0 H MEAN CELL HGB CONCETRATION (test code = MCHC) 33.5 gram/dL 33.0-36. 0 N RED CELL DISTRIBUTION WIDTH (test code = RDW) 13.0 % 11.6-16. 2 N RED CELL DISTRIBUTION WIDTH SD (test code = RDW-SD) 48.3 fL 37 .0-51.0 N PLATELET COUNT (test code = PLT) 208 K/mm3 150-450 N MEAN PLATELET VOLUME (test code = MPV) 11.4 fL 6.7-11.0 H
== END 2020-01-02 14:22 | disposition home or self-care (01) ==
LOC: FSED 11:32
DX: R10.32 Left lower quadrant pain (principal); K57.32 Diverticulitis of large intestine without perforation or abscess without bleeding; E86.0 Dehydration; E78.5 Hyperlipidemia, unspecified; K21.9 Gastro-esophageal reflux disease without esophagitis; E03.9 Hypothyroidism, unspecified
CPT/HCPCS: 74176; 80048; 80076; 81003; 85025; 99284; J0744; J1885; J2930; J7040; Q9967

== ENCOUNTER → 2020-04-05 | Outpatient (CLI) | payer MEDICARE ==
[~2020-04-05] MED LIST changes: +CIPRO500 MG PO; +CRESTOR10 MG; +DIATRIZOATE MEGL/DIATRIZOA SOD 30 ML BTL PO ONE; +IOPAMIDOL 370 MG/ML 200 ML INFUS..BTL INJ ONE; +METRONIDAZOLE500 MG PO; +OMEPRAZOLE40 MG; +ONDANSETRON ODT8 MG SL; +PREDNISONE20 MG PO
[2020-04-05 10:02] LABS: BLOOD UREA NITROGEN 11 mg/dL (7-26); BUN/CREATININE RATIO 13 (6-25); CREATININE, SERUM 0.85 mg/dL (0.57-1.11); EST GLOMERULAR FILTRATION RATE > 60 ML/MIN (60-)
== END ==
LOC: CT 09:21
PROVIDERS: ATTEND Internal Medicine Gastroenterology
DX: K57.92 Diverticulitis of intestine, part unspecified, without perforation or abscess without bleeding (principal)
CPT/HCPCS: 36415; 74177; 82565; 84520; Q9967